=== PATIENT | male | born 1955 | race Caucasian/White ===

== ENCOUNTER 2017-08-29 08:32 | Emergency (ER) | payer BC ==
--- NOTE | 2017-08-29 08:42 | EDM.PDOC ---
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 This is not a Workmen's Compensation injury. Note that the patient was getting out of his car in the parking lot at work at about 05:00 a.m. when his car door blew closed hitting him in his right facial and ear region. No history of significant head injury, headaches, visual changes , change in mental status, neck/back pain, neurological deficits, auricular drainage, etc.. He denies any pain or discomfort. The patient denies any chest pain/pressure, heart flutter, dizziness, orthostasis, orthopnea, diaphoresis, paresthesias, recent decreased exercise tolerance, or any other anginal-type symptoms. No recent history of abdominal pain, heartburn, nausea, diarrhea, melena, gross hematochezia, or any food intolerance, including fatty foods, etc.. The patient also denies any recent fever, cough, wheezing, dyspnea, etc.. Onset: Today, Sudden Onset Date: 08/29/17 Onset Time: 05:00 Duration: Constant Location: Reports: Face (As above). Denies: Head, Neck, Chest, Abdomen, Back, Pelvis, Upper Extremity, Left, Upper Extremity, Right, Generalized, Radiates to Quality: Reports: Other (No pain) Improves with: Reports: None Worsens with: Reports: None Associated Symptoms: Reports: No Other Symptoms. 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 (see below) (Compression as above) - Related Data Allergies Allergy/AdvReac Type Severity Reaction Status Date / Time No Known Allergies Allergy Verified 08/29/17 08:38 Home Meds: Home Meds Tadalafil [Cialis] 20 mg PO DAILY PRN 01/30/14 [History] metFORMIN [Glucophage] 1,000 mg PO BID@04,15 07/25/13 [History] sitaGLIPtin Phosphate [Januvia] 100 mg PO QAM 07/25/13 [History] Aspirin [Children's Aspirin] 81 mg PO QAM 08/06/14 [History] Fosinopril [Monopril] 10 mg PO QAM 08/06/14 [History] Insulin Detemir [Levemir] 25 units SUBCUT BEDTIME 08/06/14 [History] Ibuprofen 400 mg PO BID 08/07/14 [History] Omeprazole Magnesium [Prilosec Otc] 20 mg PO QAM 08/07/14 [History] Allopurinol [Zyloprim] 300 mg PO DAILY 08/29/17 [History] Hydrochlorothiazide 25 mg PO DAILY 08/29/17 [History] Past Medical History HEENT History: Reports: Hard of Hearing, Impaired Vision, Other (See Below). Denies: Cataract, Glaucoma, Macular Degeneration, Retinal Detachment Other HEENT History: Patient wears glasses. Mild bilateral presbycusis with no therapy Cardiovascular History: Reports: High Cholesterol, Hypertension, Other (See Below). Denies: Afib, Arrhythmia Other Cardiovascular History: Dyslipidemia with secondary fatty liver Respiratory History: Reports: None Gastrointestinal History: Reports: Colon Polyp, Gastritis, GERD, GI Bleed, PUD, Other (See Below) Other Gastrointestinal History: Mild gastritis with secondary borderline upper GI bleed based on EGD on 07/25/13 as below areas history of tubular adenoma at 60 cm with tubulovillous adenoma at 25 cm, which did bar turner to be colon cancer at time of subsequent hemicolectomy as below with chemotherapy also required Genitourinary History: Reports: BPH, Other (See Below) Other Genitourinary History: Erectile dysfunction Musculoskeletal History: Reports: Gout, Osteoarthritis Neurological History: Reports: Neuropathy, Diabetic, Neuropathy, Peripheral Endocrine/Metabolic History: Reports: Diabetes, Type II, IDDM - Infectious Disease History Infectious Disease History: Reports: 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 Note subsequent follow-up colonoscopy on 08/07/14 with last colonoscopy in about 2017 Musculoskeletal Surgical History: Reports: Arthroscopic Knee, Arthroscopic Procedure, Other (See Below). Denies: Shoulder Surgery Other Musculoskeletal Surgeries/Procedures:: Left knee arthroscopic surgery in about 2008 - Past Imaging History Past Imaging History: Reports: CAT Scan (CT of the abdomen and pelvis on 09/13/13 ), MRI (Right shoulder on 09/22/08) Social & Family History - Family History Cardiac: Reports: Other (See Below) Other Cardiac Family History: Father with CHF and hypertension GI: Reports: Inflammatory Bowel Disease, PUD, Other (See Below) Other GI Family History: Father with celiac disease and peptic ulcer disease Neurological: Reports: Alzheimers Disease, Dementia, Other (See Below) Other Neurological Family History: Mother with organic brain syndrome and benign brain tumor Endocrine/Metabolic: Reports: Diabetes, type II, Other (See Below) Other Endocrine/Metabolic Family History: Mother and 2 sisters with AODM Oncologic: Reports: Prostate, Other (See Below) Other Oncologic Family History: Brother with prostate cancer - Tobacco Use Smoking Status *Q: Former Smoker Tobacco Use Within Last Twelve Months: No Years of Tobacco use: 13 Used Tobacco, but Quit: Yes Second Hand Smoke Exposure: No Second Hand Smoke Education Provided: No - Caffeine Use Caffeine Use: Reports: Coffee (4 cups per day), Soda (1 soda per day), Tea ( Occasional tea-1 glass per week). Denies: Energy Drinks - Alcohol Use Alcohol Use History: Yes Days Per Week of Alcohol Use: 2 (No previous DWIs, problems with alcohol abuse, etc.) Number of Drinks Per Day: 5 (Usually beer) Total Drinks Per Week: 10 Alcohol Use in Last Twelve Months: Yes Alcohol Use Frequency: Socially - Recreational Drug Use Recreational Drug Use: No Drug Use in Last 12 Months: No Recreational Drug Type: Denies: Amphetamines (Speed), Cocaine, Heroin, LSD (Acid ), Marijuana/Hashish, Mescaline, Methamphetamine, Morphine, Oxycodone - Living Situation & Occupation Living situation: Reports: (2013, 3 children), with Significant Other 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 ED EXAM, GENERAL - Physical Exam Exam: See Below Exam Limited By: No Limitations General Appearance: Alert, WD/WN, No Apparent Distress Eye Exam: Bilateral Eye: EOMI, Normal Inspection (Patient wearing glasses. No nystagmus), PERRL Ears: Normal Canal (Mild to moderate Cerumen in the EACs bilaterally), Normal TMs, Hearing Loss (Bilateral presbycusismild), Other (1 cm superficial laceration over the inferior aspect of the right auricle with additional 1. 52 centimeters superficial abrasion in the right preauricular region. No significant acute bleeding, deformity, etc. No localized tenderness) Nose: Normal Inspection, Normal Mucosa, No Blood Throat/Mouth: Normal Inspection, Normal Lips, Normal Teeth, Normal Gums, Normal Oropharynx, Normal Voice, No Airway Compromise. No: Dysphagia, Perioral Cyanosis Head: Atraumatic, Normocephalic, Other (Right preauricular abrasion as above). No: Facial Swelling, Facial Tenderness, Sinus Tenderness Neck: Normal Inspection, Supple, Non-Tender, Full Range of Motion. No: Lymphadenopathy (L), Lymphadenopathy (R), Thyromegaly Respiratory/Chest: No Respiratory Distress, Lungs Clear, Normal Breath Sounds, No Accessory Muscle Use, Chest Non-Tender. No: Pleural Rub, Retractions Cardiovascular: Normal Peripheral Pulses, No Edema, No Gallop, No JVD, No Murmur , No Rub, Extra Beats (Frequent. Regular rate). No: Gallop/S3, Gallop/S4, Friction Rub Peripheral Pulses: 2+: Radial (L), Radial (R) GI/Abdominal: Normal Bowel Sounds, Soft, Non-Tender, No Organomegaly, No Distention, No Abnormal Bruit, No Mass, Pelvis Stable, Other (Obese). No: Guarding (Male) Exam: Deferred Rectal (Males) Exam: Deferred Back Exam: Normal Inspection, Full Range of Motion. No: CVA Tenderness (L), CVA Tenderness (R), Muscle Spasm Extremities: Normal Inspection, Normal Range of Motion, Non-Tender, Normal Capillary Refill, No Pedal Edema Neurological: Alert, Oriented, CN II-XII Intact, Normal Cognition, Normal Gait, No Motor/Sensory Deficits Psychiatric: Normal Affect, Normal Mood Skin Exam: Warm, Dry, Normal Color, No Rash, Wound/Incision (As above). No: Diaphoretic, Ecchymosis, Petechiae Lymphatic: No Adenopathy ED GENERAL MEDICAL PROCEDURES - Laceration/Wound Repair Right Lower Ear Lac/wound length in cm: 1.0 Appearance: Superficial Distal NVT: Neuro & Vascular Intact, No Tendon Injury Anesthetic Type: Other (None) Skin Prep: Chlorhexidine (Hibiciens) Saline irrigation (cc's): 0 Exploration/Debridement/Repair: Wound Explored, In a Bloodless Field, Explored to Base, No Foreign Material Found Closed with: Wound Adhesive Drain Placement: No Sterile Dressing Applied: None Tetanus Status Addressed: Yes Complications: No Course - Vital Signs Last Recorded V/S: Last Vital Signs Temp 36.6 C 08/29/17 08:32 Pulse 82 08/29/17 08:32 Resp 18 08/29/17 08:32 BP 188/94 H 08/29/17 08:32 Pulse Ox 100 08/29/17 08:32 Vital Signs - 24 hr 08/29/17 08/29/17 08:32 08:49 Temperature [ 36.6 C Temporal] Pulse, 82 75 Peripheral [ Left Pulse Oximetry] Respiratory 18 18 Rate Blood Pressure 188/94 H 177/73 H [Right Upper Arm] O2 Sat by Pulse 100 100 Oximetry - Orders/Labs/Meds Labs: None Meds: None - Radiology Interpretation Free Text/Narrative:: laboratory monitor does show brief recurrent episodes of bigeminy with additional mild to moderately frequently uniform PVCs with no tachycardia or other significant arrhythmia Departure - Departure Time of Disposition: 09:25 Disposition: Home, Self-Care 01 Clinical Impression: Laceration, Frequent PVCs, IDDM (insulin dependent diabetes mellitus), Hyperuricemia, Dyslipidemia, Peptic reflux disease Hypertension Qualifiers: Hypertension type: essential hypertension Qualified Code(s): I10 - Essential ( primary) hypertension - Discharge Information Instructions: Palpitations, [id number], Tissue Adhesive Wound Care, Easy-to- Read Referrals: PCP,Unknown [Primary Care Provider] - Forms: ED Department Discharge Additional Instructions: 1. Followup with your regular provider in - days as directed with recommended update of yearly exam, blood work, etc. 2. Discuss with your regular provider at that time newly diagnosed PVCs and bigeminy during today's visit and also recommend reinitiation of your cholesterol therapy at that time. 3. Discuss with your regular provider recommended Cardiolite stress test and/or Holter monitor versus event monitor PETER secondary to multiple cardiac risk factors and today's newly diagnosed arrhythmia as above 3. Continue to have your regular provider observe your blood pressures closely with somewhat elevated blood pressures today 4. Dermabond instructions- See form 5. Work excuse- See Form - Problem List & Annotations (1) Laceration SNOMED Code(s): 918401371 Code(s): WPH9075 - Status: Acute Priority: High Current Visit: Yes Onset Date: 08/29/17 Annotation/Comment:: Overall good results with Dermabond repair as above. Wound care, activity restrictions, etc. discussed. [employer] work excuse provided with no work restrictions and patient to return to work today. The emergency room nurse did confirm through [facility] that last TdAP was given on 02/25/2010 with no up-to-date needed at this time. (2) Frequent PVCs SNOMED Code(s): 83888035 Code(s): I49.3 - VENTRICULAR PREMATURE DEPOLARIZATION Status: Acute Priority: High Current Visit: Yes Onset Date: 08/29/17 Annotation/Comment: : Newly diagnosed brief bigeminy and frequent PVCs as above. Patient may benefit from beta charisse therapy, cardiac workup, etc. as per discharge instructions with multiple cardiac risk factors as above. His arrhythmia is nonsymptomatic at this time. (3) IDDM (insulin dependent diabetes mellitus) SNOMED Code(s): 94557732 Code(s): E11.9 - TYPE 2 DIABETES MELLITUS WITHOUT COMPLICATIONS; Z79.4 - [facility] (CURRENT) USE OF INSULIN Status: Chronic Priority: Medium Current Visit: Yes Annotation/Comment:: His blood sugars have been under relatively good control by his history with a.m. and p.m. Accu-Cheks averaging in the 140s. He is already on an KATEY inhibitor. Continue to observe closely by his regular provider with apparent mild diabetic neuropathy but no known nephropathy, retinopathy, etc. (4) Hypertension SNOMED Code(s): 02888009 Code(s): I10 - ESSENTIAL (PRIMARY) HYPERTENSION Status: Chronic Priority : High Current Visit: Yes Annotation/Comment:: Blood Pressures were under somewhat poor control during emergency room evaluation. No significant cardiac symptoms, etc. he may benefit from beta charisse therapy, etc. as above. Continue to observe closely by his regular provider. Qualifiers: Hypertension type: essential hypertension Qualified Code(s): I10 - Essential (primary) hypertension (5) Hyperuricemia SNOMED Code(s): 05049136 Code(s): E79.0 - HYPERURICEMIA W/O SIGNS OF INFLAM ARTHRIT AND TOPHACEOUS DIS Status: Chronic Priority: Medium Current Visit: Yes Annotation/ Comment:: His Arthritis has been stable with no recent gout attacks, etc. (6) Dyslipidemia SNOMED Code(s): 404799633 Code(s): E78.5 - HYPERLIPIDEMIA, UNSPECIFIED Status: Chronic Priority: High Current Visit: Yes Annotation/Comment:: Patient apparently discontinued his statin therapy on his own. Secondary to his diabetes and cardiac risk factors statin therapy should be reinitiated PETER with this to be discussed further with his regular provider as per discharge instructions. (7) Peptic reflux disease SNOMED Code(s): 23249436 Code(s): K21.9 - GASTRO-ESOPHAGEAL REFLUX DISEASE WITHOUT ESOPHAGITIS Status: Chronic Priority: Medium Current Visit: Yes Annotation/Comment:: Stable by patient history. Note history of colon cancer as above. - Problem List Review Problem List Initiated/Reviewed/Updated: Yes - Assessment/Plan Assessment:: As above Plan: As above. Extensive precautions were given to the patient, who is in agreement with the treatment plan. See Patient Instructions for further treatment and plan.
[2017-08-29 09:48] VITALS: BP 177/73
== END 2017-08-29 09:25 | disposition home or self-care (01) ==
LOC: LL.ED 08:32
DX: S01.311A Laceration without foreign body of right ear, initial encounter (principal); E11.9 Type 2 diabetes mellitus without complications; I10 Essential (primary) hypertension; E78.5 Hyperlipidemia, unspecified; E79.0 Hyperuricemia without signs of inflammatory arthritis and tophaceous disease; K21.9 Gastro-esophageal reflux disease without esophagitis; E78.00 Pure hypercholesterolemia, unspecified; W23.0XXA Caught, crushed, jammed, or pinched between moving objects, initial encounter; Y92.481 Parking lot as the place of occurrence of the external cause
CPT/HCPCS: 12011; 99283